=== PATIENT | male | born 1975 | race Caucasian/White ===

== ENCOUNTER 2023-12-18 16:57 | Emergency (ER) | payer OTHER ==
[2023-12-18] MEDS: Sodium Chloride 0.9% 1,000 ML IV ONE (17:36)
[2023-12-18] MEDS: ceFAZolin 2 GM Vial IVPUSH ONE (17:36)
[2023-12-18] MEDS: Diphtheria,Pertussis(Acell),Tetanus Vaccine 0.5 ML Syringe IM ONE (17:37)
== END 2023-12-18 18:30 ==
LOC: DL.ED 16:57
DX: S62.661A Nondisplaced fracture of distal phalanx of left index finger, initial encounter for closed fracture (principal); F17.200 Nicotine dependence, unspecified, uncomplicated; Z91.030 Bee allergy status; Z23 Encounter for immunization; W22.8XXA Striking against or struck by other objects, initial encounter; Y92.219 Unspecified school as the place of occurrence of the external cause; Y99.0 Civilian activity done for income or pay
CPT/HCPCS: 73130; 90471; 90715; 96374; 99284; J0690; J7030